=== PATIENT | female | born 1960 | race Caucasian/White ===

== ENCOUNTER → 2019-08-08 | Day surgery (SDC) | payer OTHER ==
[~2019-08-08] MED LIST: ACETAMINOPHEN 1000 MG/100 ML 100 ML IV ONE; ACETAMINOPHEN/CODEINE 300MG - 30MG TAB ONE; ACETAMINOPHEN325 M1 PO; ASPIRIN81 MG PO; BACITRACIN 50,000 UNIT VIAL ONE; BUPIVACAINE HCL 0.5% INJ 30 ML VIAL INJ ONE; CALTRATE 600 W1 EACH PO; CLINDAMYCIN PHOS 900MG/ 50ML 50 ML IV ONE; DEXAMETHASONE SOD PHOS INJ 4 MG/ML VIAL ONE; FAMCICLOVIR125 MG PO; FAMCICLOVIR250 MG; FENTANYL CITRATE/PF 100MCG/2 ML INJ ONE; FISH OIL 1,0001 EAC2 PO; KETOROLAC TROMETHAMINE 30 MG/ML VIAL ONE; LIDOCAINE HCL 2% LOCAL INJ 5 ML SDV VIAL INJ ONE; MIDAZOLAM HCL 2 MG/2 ML VIAL ONE; MOTRIN200 MG PO; MULTIVITAMINS1 EAC7 PO; OMEPRAZOLE40 MG PO; ONDANSETRON HCL INJ 2MG/ML 2ML 2 MG/ML VIAL ONE; PROPOFOL IV EMULSION 10 MG/ML 20 ML VIAL ONE; SEVOFLURANE INHAL SOLN 250 ML PEN BTL ONE; TUMS200 MG PO; ULTRACET TABLE1 EACH PO; VITAMIN B-121000 MCG PO
[2019-08-08 13:40] VITALS: BP 146/91
--- NOTE | 2019-08-13 12:38 | Operative Report ---
DATE OF PROCEDURE: 08/08/2019 SURGEON: Juma Pepe MD PREOPERATIVE DIAGNOSES: Displaced right fibular fracture and disruption of the ankle mortise. POSTOPERATIVE DIAGNOSES: Displaced right fibular fracture and disruption of the ankle mortise. OPERATIONS AND PROCEDURES PERFORMED: The patient underwent a closed reduction of the right ankle mortise and an open reduction and internal fixation of a right fibular fracture. PLAYERS ASSISTANT: There was no paperhanger assistant. ANESTHESIA: General endotracheal intubation anesthesia. IV FLUIDS: Per the anesthesia record. BRIEF DESCRIPTION OF THE PATIENT'S OPERATIVE PROCEDURE: Ms. Meek was taken to the operating room and placed in supine position on the operating table. Following induction of general anesthesia as well as endotracheal intubation, the patient's right lower extremity was examined under anesthesia. She was found to have bruising and ecchymosis about the ankle joint. Fluoroscopic evaluation of the ankle demonstrated a displaced fibular fracture with widening of the ankle mortise. The patient's lower extremity was prepped and draped in standard surgical fashion. The case was begun by reducing the patient's ankle mortise. An incision was then created over the lateral aspect of the ankle. This incision was carried through the skin only. Blunt dissection was used to deepen the incision to the level of the patient's fracture site. The superficial peroneal nerve was identified and protected throughout the remainder of the case. The fracture site was cleaned and the wound was copiously irrigated. The fracture was then reduced using a fracture reduction clamp. A plate was then contoured to the lateral aspect of the fibula and affixed to the fibula with combinations of cortical and locking screws. Repeat fluoroscopic evaluation of the ankle joint 3 planes demonstrated reduction of the patient's ankle mortise and stabilization of the patient's ankle fracture. The wound was again copiously irrigated. Soft tissues were closed in a multilayer fashion. A well-padded 3-sided splint was then applied to the lower extremity. The patient was then awakened and taken to the postanesthesia care in stable condition. MD FELICIA SamanoR/MODL /[id number]
== END | disposition home or self-care (01) ==
LOC: OR 06:20
PROVIDERS: ATTEND Specialist
DX: S82.61XA Displaced fracture of lateral malleolus of right fibula, initial encounter for closed fracture (principal); S93.421A Sprain of deltoid ligament of right ankle, initial encounter; Z01.810 Encounter for preprocedural cardiovascular examination; K21.9 Gastro-esophageal reflux disease without esophagitis; D86.9 Sarcoidosis, unspecified; Z88.0 Allergy status to penicillin; X50.1XXA Overexertion from prolonged static or awkward postures, initial encounter; Y92.89 Other specified places as the place of occurrence of the external cause; Z96.653 Presence of artificial knee joint, bilateral; Z68.34 Body mass index [BMI] 34.0-34.9, adult
CPT/HCPCS: 27792; 93005; C1713 ×4; J0131; J1100; J1885; J2001; J2250; J2405; J2704; J3010